=== PATIENT | male | born 1985 | race Caucasian/White ===

== ENCOUNTER 2020-01-29 12:49 | Emergency (ER) | payer OTHER, SELFPAY ==
[~2020-01-29] VITALS: Ht 175.3 cm; Wt 90.0 kg
[2020-01-29 12:57] VITALS: BP 134/95
--- NOTE | 2020-01-29 15:20 | NUR ---
i colected a covid swab to send out, from left naso-pharygeal. swab walked down to lab by nicholas
== END 2020-01-29 15:20 | disposition home or self-care (01) ==
LOC: ER 12:54
DX: J06.9 Acute upper respiratory infection, unspecified (principal); Z20.828 Contact with and (suspected) exposure to other viral communicable diseases
CPT/HCPCS: 36415; 99283; U0003